=== PATIENT | male | born 2000 ===

== ENCOUNTER 2022-11-12 17:30 | Emergency (ER) | payer BC ==
[2022-11-12] MEDS ORDERED: Bacitracin Oint 1 GM U/D Packet TOP ONE (19:46)
[2022-11-12] MEDS ORDERED: Acetaminophen 325 MG Tab PO ONE (19:46)
== END 2022-11-12 19:58 | disposition home or self-care (01) ==
LOC: JP.ED 17:30
DX: S01.111A Laceration without foreign body of right eyelid and periocular area, initial encounter (principal); S20.311A Abrasion of right front wall of thorax, initial encounter; Z91.010 Allergy to peanuts; W22.01XA Walked into wall, initial encounter
CPT/HCPCS: 12011; 99282; A9270